=== PATIENT | male | born 1990 | race Two or more races ===

== ENCOUNTER 2018-02-11 20:33 | Emergency (ER) | payer MEDICAID ==
[~2018-02-11] VITALS: Ht 180.3 cm; Wt 97.0 kg
[~2018-02-11 20:33] MED LIST: CETI1TAB PO; CYCL-1 PO; HYDR-565 PO; HYDR-569 PO; KETO10TA2 PO; NEO/5DRO3 RIGHTEYE
[2018-02-11] MEDS ORDERED: IBUP-1986 PO (22:26)
[2018-02-11 22:43] VITALS: BP 121/82
== END 2018-02-11 22:47 | disposition home or self-care (01) ==
LOC: ER 20:33
DX: M77.9 Enthesopathy, unspecified (principal); M25.532 Pain in left wrist; Z87.442 Personal history of urinary calculi; Z79.899 Other long term (current) drug therapy
CPT/HCPCS: 29125; 73110; 99284

== ENCOUNTER 2019-02-22 01:15 | Emergency (ER) | payer OTHER, MEDICAID ==
[~2019-02-22] VITALS: Ht 180.3 cm; Wt 90.1 kg
[~2019-02-22 01:15] MED LIST changes: +HYDR-4353 PO; +HYDR-4383 PO; -HYDR-565 PO; -HYDR-569 PO; +IBUP-1986 PO; +POLY10DR RIGHTEYE
[2019-02-22 01:27] VITALS: BP 154/90
[2019-02-22] MEDS ORDERED: ibuprofen tablet 400 MG TABLET PO ONE (01:40)
== END 2019-02-22 02:33 | disposition home or self-care (01) ==
LOC: ER 01:15
DX: S09.90XA Unspecified injury of head, initial encounter (principal); R42 Dizziness and giddiness; M54.5 Low back pain; Z87.442 Personal history of urinary calculi; Z79.899 Other long term (current) drug therapy; V87.7XXA Person injured in collision between other specified motor vehicles (traffic), initial encounter; Y93.89 Activity, other specified; Y92.89 Other specified places as the place of occurrence of the external cause; Y99.8 Other external cause status
CPT/HCPCS: 99282

== ENCOUNTER 2020-03-16 20:03 | Emergency (ER) | payer MEDICAID ==
[~2020-03-16] VITALS: Ht 180.3 cm; Wt 89.5 kg
[2020-03-16] MEDS ORDERED: ketorolac trometh inj. 60 MG/2 ML VIAL IM ONE (20:15)
[2020-03-16] MEDS ORDERED: KETO10TA2 PO (20:16)
[2020-03-16] MEDS ORDERED: CYCL-1 PO (20:16)
[2020-03-16 20:26] VITALS: BP 146/78
== END 2020-03-16 20:29 | disposition home or self-care (01) ==
LOC: ER 20:03
DX: S39.012A Strain of muscle, fascia and tendon of lower back, initial encounter (principal); Z79.899 Other long term (current) drug therapy; X58.XXXA Exposure to other specified factors, initial encounter; Y93.67 Activity, basketball; Y92.89 Other specified places as the place of occurrence of the external cause; Y99.8 Other external cause status
CPT/HCPCS: 96372; 99283; J1885

== ENCOUNTER 2021-07-19 23:59 | Emergency (ER) | payer MEDICAID ==
[~2021-07-19] VITALS: Ht 180.3 cm; Wt 93.7 kg
[2021-07-20 00:07] VITALS: BP 154/93
--- NOTE | 2021-07-20 00:41 | NUR ---
PT REPORTS 4/10 INTERMITTENT PAIN, AND NUMBNESS ON RIGHT UPPER BACK, SHOULDER, AXILLA, AND RIGHT CHEST. MD ALSO REPORTS NAUSEA FROM THE PAIN.
[2021-07-20] MEDS ORDERED: PRED20TA PO (00:54)
== END 2021-07-20 01:17 | disposition home or self-care (01) ==
LOC: ER 07-20 00:02
DX: S29.012A Strain of muscle and tendon of back wall of thorax, initial encounter (principal); G58.9 Mononeuropathy, unspecified; R20.0 Anesthesia of skin; Z87.442 Personal history of urinary calculi; Z79.899 Other long term (current) drug therapy; X58.XXXA Exposure to other specified factors, initial encounter; Y93.89 Activity, other specified; Y92.89 Other specified places as the place of occurrence of the external cause; Y99.8 Other external cause status
CPT/HCPCS: 99283

== ENCOUNTER 2021-09-10 07:43 | Emergency (ER) | payer MEDICAID ==
[~2021-09-10] VITALS: Ht 182.9 cm; Wt 95.5 kg
[2021-09-10 08:06] VITALS: BP 152/109
[2021-09-10] MEDS ORDERED: ibuprofen tablet 400 MG TABLET PO ONE (08:45)
== END 2021-09-10 09:46 | disposition home or self-care (01) ==
LOC: ER 07:44
DX: M25.561 Pain in right knee (principal); Z87.442 Personal history of urinary calculi; Z79.899 Other long term (current) drug therapy
CPT/HCPCS: 73564; 99283

== ENCOUNTER 2022-05-20 21:49 | Emergency (ER) | payer MEDICAID ==
[~2022-05-20] VITALS: Ht 182.9 cm; Wt 86.4 kg
[2022-05-20 23:44] VITALS: BP 142/94
== END 2022-05-20 23:46 | disposition home or self-care (01) ==
LOC: ER 21:50
DX: S06.0X9A Concussion with loss of consciousness of unspecified duration, initial encounter (principal); Z87.442 Personal history of urinary calculi; Z79.899 Other long term (current) drug therapy; Z79.2 Long term (current) use of antibiotics; Y04.8XXA Assault by other bodily force, initial encounter; Y93.89 Activity, other specified; Y92.89 Other specified places as the place of occurrence of the external cause; Y99.8 Other external cause status
CPT/HCPCS: 99281

== ENCOUNTER 2022-12-20 08:55 | Emergency (ER) | payer MEDICAID ==
[2022-12-21] MEDS ORDERED: AMOX-117 PO (19:06)
== END 2022-12-20 09:12 | disposition left against medical advice (07) ==
LOC: ER 08:55
DX: K04.7 Periapical abscess without sinus (principal); Z53.21 Procedure and treatment not carried out due to patient leaving prior to being seen by health care provider

== ENCOUNTER 2022-12-21 16:38 | Emergency (ER) | payer MEDICAID ==
[~2022-12-21] VITALS: Ht 180.3 cm; Wt 88.0 kg
[2022-12-21 16:42] VITALS: BP 189/102
[2022-12-21] MEDS ORDERED: amox tr/potassium clavulanate 875/125mg TAB PO ONE (18:55)
[2022-12-21] MEDS ORDERED: AMOX-117 PO (19:06)
== END 2022-12-21 19:18 | disposition home or self-care (01) ==
LOC: ER 16:38
DX: K04.7 Periapical abscess without sinus (principal); K08.89 Other specified disorders of teeth and supporting structures; Z87.442 Personal history of urinary calculi; Z79.899 Other long term (current) drug therapy
CPT/HCPCS: 41800; 99284; A6449

== ENCOUNTER 2025-01-14 16:01 | Emergency (ER) | payer MEDICAID ==
[~2025-01-14] VITALS: Ht 180.3 cm; Wt 97.7 kg
[2025-01-14] MEDS ORDERED: AMOX-580 PO (17:51)
[2025-01-14 17:58] VITALS: BP 124/78; PULSE 74; RESP 16; TEMP 98.4; O2SAT 97
== END 2025-01-14 17:59 | disposition home or self-care (01) ==
LOC: ER 16:02
DX: K04.7 Periapical abscess without sinus (principal)
CPT/HCPCS: 99283

== ENCOUNTER 2025-02-22 11:00 | Emergency (ER) | payer MEDICAID ==
[~2025-02-22] VITALS: Ht 180.3 cm; Wt 101.0 kg
[2025-02-22 11:12] VITALS: BP 186/123; PULSE 86; RESP 16; O2SAT 97
[2025-02-22] MEDS: triamcinolone acetonide 40mg/ml inj IM ONE (12:12)
[2025-02-22 12:15] VITALS: TEMP 97.6
== END 2025-02-22 12:17 | disposition home or self-care (01) ==
LOC: ER 11:01
DX: J30.1 Allergic rhinitis due to pollen (principal); Z87.440 Personal history of urinary (tract) infections
CPT/HCPCS: 96372; 99283; J3301

== ENCOUNTER 2025-04-14 12:09 | Emergency (ER) | payer MEDICAID ==
[~2025-04-14] VITALS: Ht 180.3 cm; Wt 95.0 kg
--- NOTE | 2025-04-14 15:01 | Physician Documentation ---
History of Present Illness ~ Chief Complaint: Cold, cough & congestion Stated Complaint: COLD SYMPTOMS Time Seen by MD: 14:22 Primary Medical Doctor: [facility] Patient is seen today with complaints of cough cold and congestion and sore throat nasal congestion that started about two weeks ago. Patient states he is concerned because sometimes when he lays flat he feels a little wheezy. Patient denies any shortness of breath or chest pain or abdominal pain or nausea, vomiting, diarrhea. Patient has no other concern or complaint at this time other than patient states he has a history of some high blood pressure but has never seen his primary care about this issue. Patient has no other concern or complaint at this time. Medication Reconciliation Allergies: Uncoded Allergies: POLLEN (Allergy, Mild, 02/22/25) Scheduled Cetirizine Hcl/Pseudoephedrine (Zyrtec-D Tablet), 1 TABLET PO BID Cyclobenzaprine* (Cyclobenzaprine*), 1 TAB PO HS Hydrocodone Bit/Acetaminophen ([place] 10-325 Tablet), 1 TAB PO Q6H Hydrocodone/Acetaminophen ([place] 5-325 Tablet), 1 TAB PO TID PRN Ibuprofen (Ibuprofen), 1 TAB PO Q8H Ketorolac Tromethamine (Ketorolac Tromethamine), 1 TAB PO Q8H Rickey/Polymyx B Sulf/Dexameth (Maxitrol Eye Drops), 1 DROP RIGHTEYE QID Polymyxin B Sulf/Trimethoprim (Polytrim Eye Drops), 2 DROP RIGHTEYE Q4H Scheduled PRN Cyclobenzaprine* (Cyclobenzaprine*), 1 TABLET PO Q8H PRN for muscle spasms Cyclobenzaprine* (Cyclobenzaprine*), 1 TABLET PO Q8H PRN for muscle spasms Ketorolac Tromethamine (Ketorolac Tromethamine), 1 TAB PO Q8HPRN PRN for pain Past Medical History Past Medical History: Kidney Stones Past Surgical History: no surgical history Smoking Status: Never smoker Alcohol Use: Rarely Drug Use: none Lives with: Family Lives In: Home Occupation: employed Review of Systems Constitutional: Denies: chills, fever, weakness Eyes: Denies: pain, blurred vision ENT: Denies: ear pain, nose pain, throat pain, mouth pain Respiratory: Denies: cough, shortness of breath Cardiovascular: Denies: chest pain, palpitations Gastrointestinal: Denies: abdominal pain, nausea, vomiting Genitourinary: Denies: burning, dysuria Male Genitalia: Denies: penile discharge, testicular pain Neurological: Denies: headache, dizziness Musculoskeletal: Denies: pain, swelling Integumentary: Denies: rash, lesions Allergic/Immunologic: Denies: hives, itching Hematologic/Lymphatic: Denies: no symptoms reported Psychiatric: Denies: depression, anxiety Physical Exam Vital Signs: Temperature: 98.9, Source: Oral, Heart Rate: 95, Respiratory Rate: 16, BP: 169/106, Pulse Oximetry: 99, Weight: 95.000 Oxygen Flow Rate: 0 Physical Exam General: Awake and Alert, no acute distress. HEENT: Conjunctiva pink, Sclera clear, Mucus Membranes moist. Neck: Supple without masses and tenderness. Resp: Unlabored. Lungs clear to auscultation bilaterally. Heart: Regular Rate and rhythm, normal S1 and S2 without murmur, rub or gallop. Abdomen: Soft and non tender no organomegaly Extremities: No cyanosis,clubbing or edema. Skin: Warm and Dry. Progress Results/Orders Results/Orders Vital Signs 04/14/25 12:18 Temp 98.9 Pulse 95 Resp 16 B/P (MAP) 169/106 Pulse Ox 99 O2 Flow Rate 0 Medical Decision Making Findings Patient is seen today with complaints of cough cold and congestion and sore throat nasal congestion that started about two weeks ago. Patient states he is concerned because sometimes when he lays flat he feels a little wheezy. Patient denies any shortness of breath or chest pain or abdominal pain or nausea, vomiting, diarrhea. Patient has no other concern or complaint at this time other than patient states he has a history of some high blood pressure but has never seen his primary care about this issue. Patient has no other concern or complaint at this time. Patient will continue [id number] ibuprofen and Tylenol and Mucinex as needed for symptomatic relief. Patient will increase rest and fluids. Patient will return to ED with any worsening, concerning or changing symptoms. Patient will follow up with primary care regarding blood pressure or hypertension concerns.. Shared Decision-making utilized with the patient today. Departure Disposition: HOME / SELF CARE / HOMELESS Impression: Primary Impression: Acute respiratory infection Additional Impression: Cough Qualified Codes: R05.1 - Acute cough Condition: Stable Discharge Instructions: Upper Respiratory Infection, Adult Additional Instructions: Patient will continue [id number] ibuprofen and Tylenol and Mucinex as needed for symptomatic relief. Patient will increase rest and fluids. Patient will return to ED with any worsening, concerning or changing symptoms. Patient will follow up with primary care regarding blood pressure or hypertension concerns.. Shared Decision-making utilized with the patient today. Referrals: NO PRIMARY CARE PROVIDER (PCP) Signature Scribe Signature: No scribe Attestation: No scribe GIORGI CHANG PAC April 14, 2025 15:01
[2025-04-14 15:11] VITALS: BP 151/125; PULSE 114; RESP 16; TEMP 98; O2SAT 100
== END 2025-04-14 15:12 | disposition home or self-care (01) ==
LOC: ER 12:10
DX: J22 Unspecified acute lower respiratory infection (principal); Z79.899 Other long term (current) drug therapy; Z87.442 Personal history of urinary calculi
CPT/HCPCS: 99282